=== PATIENT | female | born 1925 | race Caucasian/White ===

== ENCOUNTER → 2017-05-17 | Outpatient (CLI) | payer MEDICARE ==
--- NOTE | 2017-05-17 12:38 | Diagnostic Imaging Report ---
PROCEDURE: Frontal and lateral views of the chest. COMPARISON: Patients [facility], , CHEST 2 VIEWS, 03/03/2017, 11:02. INDICATIONS: DYSPNEA FINDINGS: Lines/tubes: None. Lungs: Lungs are mildly hypoinflated. Interval increase in bilateral atelectatic changes, likely compressive. Aerated portions of the lungs show no nodules, masses, or consolidation. Pleura: Interval increase in size of bilateral pleural effusions, right greater than left. Heart and mediastinum: Cardiac silhouette is obscured. Bones: No acute bony abnormalities. Multilevel degenerative disc changes in the thoracic spine. IMPRESSION: 1. interval increase in size of bilateral pleural effusions, right left, with increased bibasilar atelectatic changes Juan Villasenor M.D. Dictated by: Juan Villasenor M.D. on 05/17/2017 at 12:48 Electronically approved by: Juan Villasenor M.D. on 05/17/2017 at 12:48
== END ==
LOC: RAD 11:45
PROVIDERS: ATTEND Family Medicine
DX: R06.00 Dyspnea, unspecified (principal)
CPT/HCPCS: 71046

== ENCOUNTER → 2017-06-02 | Outpatient (CLI) | payer MEDICARE ==
--- NOTE | 2017-06-02 14:07 | Diagnostic Imaging Report ---
PROCEDURE:CHEST 2 VIEWS TECHNIQUE:PA and lateral chest INDICATION:Chest pain COMPARISON:Patients [facility], DX, CHEST 2 VIEWS, 03/03/2017, 11:02. Patients [facility], DX, CHEST 2 VIEWS, 05/17/2017, 12:11. FINDINGS: Symmetric hyperinflation is general paucity of interstitial lung markings. Enlarged cardiac silhouette. No pleural effusions. Moderate aortic arch and descending thoracic aortic calcification. Intact skeleton. CONCLUSION: 1. Hyperinflation consistent with emphysema. 2. Cardiomegaly without pulmonary edema. Dictated by: Baldomero Gutierrez M.D. on 06/02/2017 at 14:07 Electronically approved by: Baldomero Gutierrez M.D. on 06/02/2017 at 14:07
== END ==
LOC: RAD 13:26
PROVIDERS: ATTEND Family Medicine
DX: I50.9 Heart failure, unspecified (principal); I48.91 Unspecified atrial fibrillation
CPT/HCPCS: 71046

== ENCOUNTER 2017-07-20 12:50 | Emergency (ER) | payer MEDICARE ==
[~2017-07-20] VITALS: Ht 162.6 cm; Wt 59.0 kg
--- OUTSIDE RECORDS SUMMARY | 2017-07-20 12:52 | XMS REPORT ---
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 Allergies, Adverse Reactions, Alerts This patient has no known allergies or adverse reactions. Medications This patient has no known medications. Results Test Description Test Time Test Comments Text Results Atomic Results Result Comments CHEST 2 VIEWS [place] [id number] [place] [id number] Patient Name: RJ HOWELL MR #: [id number] : 1925 Age/Sex: 89/F Req #: [id number] Adm Physician: Ordered by: MIKE BARRAGAN, REI Vasques MD Report #: [id number] Location: RAD Room/Bed: Procedure: 0301- 0047 DX/CHEST 2 VIEWS Exam Date: Exam Time: REPORT STATUS: Signed PROCEDURE: CHEST 2 VIEWS TECHNIQUE: PA and lateral chest INDICATION: Chest pain COMPARISON: [facility] , DX, CHEST 2 VIEWS, 03/03/2017, 11:02. [facility], DX, CHEST 2 VIEWS, 05/17/2017, 12:11. FINDINGS: Symmetric hyperinflation is general paucity of interstitial lung markings. Enlarged cardiac silhouette. No pleural effusions. Moderate aortic arch and descending thoracic aortic calcification. Intact skeleton. CONCLUSION: 1. Hyperinflation consistent with emphysema. 2. Cardiomegaly without pulmonary edema. Dictated by: Danica Gutierrez M.D. on 06/02/2017 at 14:07 Electronically approved by: Danica Gutierrez M.D. on 06/02/2017 at 14:07 Dictated By: DANICA GUTIERREZ MD 06 Transcribed By: ROBERT on 06/02/171406 COPY TO: REI MCKEON CHEST 2 VIEWS [place] [address] Patient Name: RJ HOWELL MR #: [id number] : 1925 Age/Sex: 89/F Req #: [id number] Adm Physician: Ordered by: REI MCKEON MD, MD Report #: [id number] Location: [facility] Room/Bed: Procedure: 0213- 0037 DX/CHEST 2 VIEWS Exam Date: 05/17/17 Exam Time : 1200 REPORT STATUS: Signed PROCEDURE: Frontal and lateral views of the chest. COMPARISON: [facility], DX, CHEST 2 VIEWS, 2016, 11:02. INDICATIONS: DYSPNEA FINDINGS: Lines/tubes: None. Lungs: Lungs are mildly hypoinflated. Interval increase in bilateral atelectatic changes, likely compressive. Aerated portions of the lungs show no nodules, masses, or consolidation. Pleura: Interval increase in size of bilateral pleural effusions, right greater than left. Heart and mediastinum: Cardiac silhouette is obscured. Bones: No acute bony abnormalities. Multilevel degenerative disc changes in the thoracic spine. IMPRESSION: 1. interval increase in size of bilateral pleural effusions, right left, with increased bibasilar atelectatic changes Mable Villasenor M.D. Dictated by: Mable Villasenor M.D. on 05/17/2017 at 12:48 Electronically approved by: Mable Villasenor M.D. on 05/17/2017 at 12:48 Dictated By: MABLE VILLASENOR MD 1248 Transcribed By: ROBERT on 05/17/17 1248 COPY TO: REI MCKEON CHEST 2 VIEWS [place] [address] Patient Name: RJ HOWELL MR #: [id number] : 1925 Age/Sex: 89/F Req #: [id number] [facility] Physician: Ordered by: REI MCKEON MD, MD Report #: [id number] Location: [facility] Room/Bed: Procedure: 1130- 0044 DX/CHEST 2 VIEWS Exam Date: 03/03/17 Exam Time : 1115 REPORT STATUS: Signed PROCEDURE: Frontal and lateral views of the chest. COMPARISON: [facility], DX, CHEST 2 VIEWS, 2013, 15:28. INDICATIONS: DYSPNEA FINDINGS: Lines/tubes: None. Lungs: Lungs are well-inflated. Bilateral basal patchy opacities. Visualized portions of the upper lungs are clear. Pleura: Small bilateral pleural effusions, right greater than left. Thickening of the right major and minor fissures Heart and mediastinum: Enlarged cardiac silhouette. Central pulmonary venous congestion. Bones: No acute bony abnormality. Degenerative changes in the thoracic spine. IMPRESSION: 1. enlarged cardiac silhouette, central pulmonary venous congestion, bilateral pleural effusions and likely bilateral basal compressive atelectasis. Findings likely represent decompensated CHF. Mable Villasenor M.D. Dictated by: Mable Villasenor M.D. on 03/03/2017 at 12:31 Electronically approved by: Mable Villasenor M.D. on 03/03/2017 at 12:31 Dictated By: MABLE VILLASENOR MD 1231 Transcribed By: ROBERT on 03/03/17 1231 COPY TO: REI MCKEON
[2017-07-20] MEDS ORDERED: LOPRESSOR25 MG PO (13:55)
[2017-07-20] MEDS ORDERED: ELIQUIS PO (13:55)
[2017-07-20] MEDS ORDERED: SPIRONOLACTONE25 MG PO (13:55)
[2017-07-20] MEDS ORDERED: FUROSEMIDE40 MG PO (13:55)
[2017-07-20] MEDS ORDERED: AMIODARONE HCL200 MG PO (13:55)
[2017-07-20 15:03] VITALS: BP 132/70
== END 2017-07-20 15:14 | disposition home or self-care (01) ==
LOC: FSED 12:50
DX: S42.391A Other fracture of shaft of right humerus, initial encounter for closed fracture (principal); S60.221A Contusion of right hand, initial encounter; S50.11XA Contusion of right forearm, initial encounter; R42 Dizziness and giddiness; W01.0XXA Fall on same level from slipping, tripping and stumbling without subsequent striking against object, initial encounter; Y92.008 Other place in unspecified non-institutional (private) residence as the place of occurrence of the external cause; I10 Essential (primary) hypertension; I50.9 Heart failure, unspecified
CPT/HCPCS: 99283